=== PATIENT | female | born 1945 | race Caucasian/White ===

== ENCOUNTER 2016-08-13 08:57 | Emergency (ER) | payer MEDICARE, OTHER ==
[~2016-08-13 08:57] MED LIST: CRESTOR10 MG PO; FOSAMAX70 MG PO; IBUPROFEN400 MG PO; JANUVIA100 MG PO; LEVOTHYROXINE50 MCG PO; LIBRIUM CAP 2525 MG PO; MECLIZINE HCL25 MG PO; METFORMIN HCL500 MG PO; NORVASC 5 MG TAB5 MG PO; PROAIR HFA8.5 GM INH; VITAMIN D250000 UNIT PO; ZOFRAN4 MG PO
[2016-10-21] MEDS ORDERED: NORVASC 5 MG TAB5 MG PO (22:46)
[2016-10-21] MEDS ORDERED: MUCINEX600 MG PO (22:46)
== END 2016-08-13 14:25 | disposition home or self-care (01) ==
LOC: ER1 08:57
DX: M25.562 Pain in left knee (principal); M25.552 Pain in left hip; S80.212A Abrasion, left knee, initial encounter; M25.572 Pain in left ankle and joints of left foot; M54.2 Cervicalgia; Z96.642 Presence of left artificial hip joint; F17.200 Nicotine dependence, unspecified, uncomplicated; W01.0XXA Fall on same level from slipping, tripping and stumbling without subsequent striking against object, initial encounter; Y93.01 Activity, walking, marching and hiking
CPT/HCPCS: 70450; 71010; 72100; 72125; 73502; 73552; 73564; 73610; 99284

== ENCOUNTER → 2016-09-05 | Outpatient (CLI) | payer MEDICARE, OTHER ==
[~2016-09-05] MED LIST changes: +MUCINEX600 MG PO
== END ==
LOC: US 08-28 10:00
DX: R93.0 Abnormal findings on diagnostic imaging of skull and head, not elsewhere classified (principal); E07.89 Other specified disorders of thyroid; E04.1 Nontoxic single thyroid nodule; E03.4 Atrophy of thyroid (acquired)
CPT/HCPCS: 76536

== ENCOUNTER → 2016-09-11 | Outpatient (CLI) | payer MEDICARE, OTHER | LOC: HEART 5 08:42 | DX: R06.02 Shortness of breath (principal); R94.2 Abnormal results of pulmonary function studies; Z72.0 Tobacco use | CPT/HCPCS: 94010 ==

== ENCOUNTER → 2016-09-16 | Outpatient (CLI) | payer MEDICARE, OTHER | LOC: RAD 10:28 | DX: J44.9 Chronic obstructive pulmonary disease, unspecified (principal) | CPT/HCPCS: 71020 ==

== ENCOUNTER → 2016-09-30 | Outpatient (CLI) | payer MEDICARE, OTHER | LOC: CT 10:50 | DX: F17.210 Nicotine dependence, cigarettes, uncomplicated (principal) | CPT/HCPCS: G0297 ==

== ENCOUNTER → 2020-04-04 | Outpatient (CLI) | payer MEDICARE, OTHER ==
[~2020-04-04] MED LIST changes: +AMOXICILLIN500 MG PO; +ARICEPT5 MG PO; +ATIVAN 1MG TABLE1 MG PO; +BENTYL 20MG TAB20 MG PO; +CIPRO500 MG PO; +FLAGYL500 MG PO; +IBU400 MG PO; +JARDIANCE10 MG PO; +KEFLEX CAP 500500 MG PO; +LIPITOR40 MG PO; +LODINE CAP 300300 MG PO; +MACROBID 100 M100 MG PO; +MIRALAX17 GM PO; +NORCO 5-325 TA1 EACH PO; +POTASSIUM CHLO10 MEQ PO; +TYLENOL 8 HOUR650 MG PO; +TYLENOL325 MG PO; +VITAMIN D350 MCG PO
== END ==
LOC: KOH-I 16:22
DX: M54.2 Cervicalgia (principal); M50.33 Other cervical disc degeneration, cervicothoracic region
CPT/HCPCS: 72040

== ENCOUNTER 2020-05-18 12:36 | Emergency (ER) | payer MEDICARE, OTHER ==
[~2020-05-18 12:36] MED LIST changes: -ARICEPT5 MG PO; -ATIVAN 1MG TABLE1 MG PO; -BENTYL 20MG TAB20 MG PO; -JARDIANCE10 MG PO; -LIPITOR40 MG PO; -POTASSIUM CHLO10 MEQ PO; -TYLENOL325 MG PO; -VITAMIN D350 MCG PO
[2020-05-18 13:47] LABS: HEMOGLOBIN 15.8 gm/dl (12.3-15.3); RED BLOOD COUNT 4.85 M/UL (4.00-5.10); WHITE BLOOD COUNT 8.1 K/UL (4.5-11.0)
[2020-05-18 14:11] LABS: BUN/CREATININE RATIO 11 (0-10)
== END 2020-05-18 17:30 | disposition home or self-care (01) ==
LOC: ER1 12:36
PROVIDERS: Physician Assistant
DX: R30.0 Dysuria (principal); R10.9 Unspecified abdominal pain; R15.9 Full incontinence of feces; E11.9 Type 2 diabetes mellitus without complications; F17.200 Nicotine dependence, unspecified, uncomplicated; Z85.9 Personal history of malignant neoplasm, unspecified
CPT/HCPCS: 80053; 81001; 85025; 99284; Q9965

== ENCOUNTER → 2020-06-01 | Outpatient (CLI) | payer MEDICARE, OTHER ==
[~2020-06-01] MED LIST changes: +ARICEPT5 MG PO; +ATIVAN 1MG TABLE1 MG PO; +BENTYL 20MG TAB20 MG PO; +JARDIANCE10 MG PO; +LIPITOR40 MG PO; +POTASSIUM CHLO10 MEQ PO; +TYLENOL325 MG PO; +VITAMIN D350 MCG PO
== END ==
LOC: EXRD 05-08 13:30 → KOH-I 05-22 10:00
DX: I73.9 Peripheral vascular disease, unspecified (principal); R09.89 Other specified symptoms and signs involving the circulatory and respiratory systems; I65.23 Occlusion and stenosis of bilateral carotid arteries; Z12.2 Encounter for screening for malignant neoplasm of respiratory organs; F17.210 Nicotine dependence, cigarettes, uncomplicated
CPT/HCPCS: 71271; 93880; 93930

== ENCOUNTER 2020-07-02 15:24 | Emergency (ER) | payer MEDICARE, OTHER ==
[~2020-07-02 15:24] MED LIST changes: -ARICEPT5 MG PO; -ATIVAN 1MG TABLE1 MG PO; -BENTYL 20MG TAB20 MG PO; -JARDIANCE10 MG PO; -LIPITOR40 MG PO; -POTASSIUM CHLO10 MEQ PO; -TYLENOL325 MG PO; -VITAMIN D350 MCG PO
== END 2020-07-02 18:00 | disposition left against medical advice (07) ==
LOC: ER1 15:24
DX: Z53.21 Procedure and treatment not carried out due to patient leaving prior to being seen by health care provider (principal)
CPT/HCPCS: 93005

== ENCOUNTER 2020-07-03 08:29 | Emergency (ER) | payer MEDICARE, OTHER ==
[2020-07-03 09:35] LABS: HEMOGLOBIN 15.2 gm/dl (12.3-15.3); RED BLOOD COUNT 4.81 M/UL (4.00-5.10); WHITE BLOOD COUNT 4.9 K/UL (4.5-11.0)
[2020-07-03 10:03] LABS: BUN/CREATININE RATIO 18 (0-10)
== END 2020-07-03 11:30 | disposition home or self-care (01) ==
LOC: ER1 08:29
PROVIDERS: Student in an Organized Health Care Education/Training Program
DX: R94.31 Abnormal electrocardiogram [ECG] [EKG] (principal); F17.210 Nicotine dependence, cigarettes, uncomplicated
CPT/HCPCS: 80053; 81001; 82550; 82553; 83690; 83874; 84484; 85025; 93005; 99283

== ENCOUNTER → 2020-07-30 | Outpatient (CLI) | payer MEDICARE, OTHER ==
[~2020-07-30] MED LIST changes: +ARICEPT5 MG PO; +ATIVAN 1MG TABLE1 MG PO; +BENTYL 20MG TAB20 MG PO; +JARDIANCE10 MG PO; +LIPITOR40 MG PO; +POTASSIUM CHLO10 MEQ PO; +TYLENOL325 MG PO; +VITAMIN D350 MCG PO
== END ==
LOC: EMI 07-12 15:45
DX: R29.898 Other symptoms and signs involving the musculoskeletal system (principal)
CPT/HCPCS: 70551

== ENCOUNTER 2020-08-21 12:47 | Observation (INO) | payer MEDICARE, OTHER ==
[~2020-08-21] VITALS: Ht 167.6 cm; Wt 72.6 kg
[~2020-08-21 12:47] MED LIST changes: -ARICEPT5 MG PO; -ATIVAN 1MG TABLE1 MG PO; -BENTYL 20MG TAB20 MG PO; -JARDIANCE10 MG PO; -LIPITOR40 MG PO; -POTASSIUM CHLO10 MEQ PO; -TYLENOL325 MG PO; -VITAMIN D350 MCG PO
[2020-08-21 14:15] LABS: HEMOGLOBIN 15.8 gm/dl (12.3-15.3); RED BLOOD COUNT 5.04 M/UL (4.00-5.10); WHITE BLOOD COUNT 4.7 K/UL (4.5-11.0)
[2020-08-21 14:35] LABS: BUN/CREATININE RATIO 15 (0-10)
--- NOTE | 2020-08-21 21:30 | NUR ---
UNABLE TO VERIFY MEDICATIONS WITH PATIENT SHE CANNOT REMEMBER ALL HER MEDS. UNABLE TO LEAVE A VOICE MAIL WITH HER SON MEAGAN - "MAILBOX FULL". LEFT A MESSAGE WITH HER GRANDDAUGHTER DEBBY. PATIENT DOES NOT KNOW ANY OTHER TELEPHONE NUMBERS FOR HER FAMILY MEMBERS. STATES SHE DOES GET HER MEDS FROM [facility]. PHARMACY ALREADY CLOSED AT THIS TIME. WILL PASS ON TO AM RN FOR CLARIFICATION AND RECONCILLIATION.
[2020-08-22 06:50] LABS: WHITE BLOOD COUNT 4.2 K/UL (4.5-11.0)
[2020-08-22 06:51] LABS: HEMOGLOBIN 13.8 gm/dl (12.3-15.3); RED BLOOD COUNT 4.42 M/UL (4.00-5.10)
[2020-08-22] MEDS ORDERED: JARDIANCE10 MG PO (09:49)
[2020-08-22] MEDS ORDERED: ATIVAN 1MG TABLE1 MG PO (09:49)
[2020-08-22] MEDS ORDERED: ARICEPT5 MG PO (09:49)
[2020-08-22] MEDS ORDERED: LIPITOR40 MG PO (09:50)
[2020-08-22] MEDS ORDERED: TYLENOL325 MG PO (09:50)
[2020-08-22] MEDS ORDERED: VITAMIN D350 MCG PO (09:51)
== END 2020-08-22 14:34 | disposition home or self-care (01) ==
LOC: ER1 12:47 → M/S 17:21 → CDU 17:21 → M/S 19:36
PROVIDERS: Physician Assistant; Physician Assistant Medical; ADMIT Internal Medicine
DX: R41.0 Disorientation, unspecified (principal); E87.6 Hypokalemia; E78.5 Hyperlipidemia, unspecified; Z20.822 Contact with and (suspected) exposure to COVID-19; Z82.49 Family history of ischemic heart disease and other diseases of the circulatory system; Z83.3 Family history of diabetes mellitus; Z90.710 Acquired absence of both cervix and uterus; Z87.891 Personal history of nicotine dependence
CPT/HCPCS: 36415; 70450; 71045; 80053; 80307; 81001; 82140; 82550; 82553; 82607; 83036; 83874; 84439; 84443; 84484; 85025; 86140; 87086; 93005; 96374; 99285; G0378; J2405; J3420; J7030; J7120; U0002

== ENCOUNTER 2020-08-29 09:13 | Emergency (ER) | payer MEDICARE, OTHER ==
[~2020-08-29 09:13] MED LIST changes: +ARICEPT5 MG PO; +ATIVAN 1MG TABLE1 MG PO; +JARDIANCE10 MG PO; +LIPITOR40 MG PO; +TYLENOL325 MG PO; +VITAMIN D350 MCG PO
[2020-08-29 10:19] LABS: RED BLOOD COUNT 5.05 M/UL (4.00-5.10); WHITE BLOOD COUNT 4.1 K/UL (4.5-11.0)
[2020-08-29 10:39] LABS: BUN/CREATININE RATIO 13 (0-10)
[2020-08-29] MEDS ORDERED: POTASSIUM CHLO10 MEQ PO (12:31)
[2020-08-29] MEDS ORDERED: BENTYL 20MG TAB20 MG PO (12:31)
[2020-08-29] MEDS ORDERED: ZOFRAN4 MG PO (12:31)
== END 2020-08-29 13:30 | disposition home or self-care (01) ==
LOC: ER1 09:13
PROVIDERS: Internal Medicine
DX: K52.9 Noninfective gastroenteritis and colitis, unspecified (principal); E87.6 Hypokalemia; F17.210 Nicotine dependence, cigarettes, uncomplicated; Z90.710 Acquired absence of both cervix and uterus
CPT/HCPCS: 80053; 81001; 83690; 85025; 96374; 96375; 99284; J2270; J2405; J7120